=== PATIENT | male | born 1955 | race Hispanic/Latino ===

== ENCOUNTER 2017-02-03 02:43 | Emergency (ER) | payer MEDICARE, OTHER ==
[2017-02-03 03:00] VITALS: BMI 25.1
[2017-02-03 03:01] VITALS: TEMP 98.3; O2SAT 97
[2017-02-03] MEDS ORDERED: DiphenhydrAMINE 50 mg/ml Inj IVP ONE (03:10)
--- NOTE | 2017-02-03 03:17 | ED PDOC ---
Arrival/HPI - General Chief Complaint: Allergic Reaction Time Seen by Provider: 02/03/17 02:48 Historian: Patient - History of Present Illness Narrative History of Present Illness (Text): 02/03/17 03:13 Matheus Chahal is a 61 year old male who presents to the emergency department for evaluation of allergic reaction after drinking blueberry juice 3 days prior. Patient complains of itchiness and generalized rashes to upper body. Also reports of heaviness over the shoulders. States he experienced similar reaction to eating keon few years prior. Denies any lip/tongue swelling, throat fullness , or difficulty breathing. Denies fever, chills, headache, dizziness, chest pain , nausea, vomiting, diarrhea, or any other complaints at this time. PMD: Time/Duration: < week (3 days ) Symptom Onset: Gradual Symptom Course: Unchanged Severity Level: Mild Activities at Onset: Light Past Medical History - Provider Review Nursing Documentation Reviewed: Yes - Musculoskeletal/Rheumatological Hx Back Pain: Yes - Psychiatric Hx Depression: No Hx Emotional Abuse: No Hx Physical Abuse: No Hx Substance Use: No - Anesthesia Hx Anesthesia: No - Suicidal Assessment Feels Threatened In Home Enviroment: No Family/Social History - Physician Review Nursing Documentation Reviewed: Yes Family/Social History: No Known Family HX Smoking Status: Never Smoked Hx Alcohol Use: Yes (rarely) Hx Substance Use: No Hx Substance Use Treatment: No Allergies/Home Meds Allergies/Adverse Reactions: Allergies No Known Allergies Allergy (Verified 02/03/17 03:05) Review of Systems - Physician Review All systems were reviewed & negative as marked: Yes - Review of Systems Constitutional: Normal. absent: Fatigue, Fevers Respiratory: absent: SOB, Cough Cardiovascular: Normal. absent: Chest Pain Gastrointestinal: Normal. absent: Abdominal Pain, Diarrhea, Nausea, Vomiting Musculoskeletal: Other (heaviness over shoulders ) Skin: Rash, Other (Itchiness ) Neurological: Normal. absent: Headache, Dizziness Psychiatric: Normal Physical Exam Vital Signs Reviewed: Yes Vital Signs Temp Pulse Resp BP Pulse Ox 02/03/17 05:50 62 16 110/59 L 97 02/03/17 03:00 98.3 F 68 18 117/74 97 Temperature: Afebrile Blood Pressure: Normal Pulse: Regular Respiratory Rate: Normal Appearance: Positive for: Well-Appearing, Non-Toxic, Comfortable Pain Distress: None Mental Status: Positive for: Alert and Oriented X 3 - Systems Exam Head: Present: Atraumatic, Normocephalic Pupils: Present: PERRL Conjunctiva: Present: Normal Mouth: Present: Moist Mucous Membranes Pharnyx: Present: Normal. No: ERYTHEMA, EXUDATE, TONSILS ENLARGED Neck: Present: Normal Range of Motion. No: MIDLINE TENDERNESS, Paraspinal Tenderness Respiratory/Chest: Present: Clear to Auscultation, Good Air Exchange. No: Respiratory Distress, Accessory Muscle Use Cardiovascular: Present: Regular Rate and Rhythm, Normal S1, S2. No: Murmurs Abdomen: Present: Normal Bowel Sounds. No: Tenderness, Distention, Peritoneal Signs Upper Extremity: Present: Normal Inspection. No: Cyanosis, Edema Lower Extremity: Present: Normal Inspection. No: Edema Neurological: Present: GCS=15, CN II-XII Intact, Speech Normal, Motor Func Grossly Intact, Normal Sensory Function Skin: Present: Warm, Dry, Rashes (diffuse erythematous rash to chest and face ) Psychiatric: Present: Alert, Oriented x 3, Normal Insight, Normal Concentration Medical Decision Making ED Course and Treatment: 02/03/17 03:20 Impression: A 61 year old male who presents to the emergency department complaining of allergic reaction after drinking blueberry juice 3 days prior. Plan: -- EKG -- Benadryl -- Solumedrol -- Reassess and disposition Progress Notes: 02/03/17 03:21 EKG reviewed by me: NSR @ 67 bpm. RSR or QR pattern in V1 suggests right ventricular conduction delay. Re-evaluation Time: 06:22 Reassessment Condition: Re-examined, Improved - Medication Orders Current Medication Orders: Discontinued Medications Diphenhydramine HCl (Benadryl) 25 mg IVP ONCE ONE Stop: 02/03/17 03:11 Last Admin: 02/03/17 03:35 Dose: 25 mg Famotidine (Pepcid 20mg/50ml Premix) 20 mg in 50 mls @ 100 mls/hr IVPB STAT STA Stop: 02/03/17 05:11 Last Admin: 02/03/17 04:53 Dose: 100 mls/hr Methylprednisolone (Solu-Medrol) 125 mg IVP ONCE ONE Stop: 02/03/17 03:11 Last Admin: 02/03/17 03:37 Dose: 125 mg - Scribe Statement The provider has reviewed the documentation as recorded by the Estiven Sharif Provider Attestation: All medical record entries made by the Estiven were at my direction and personally dictated by me. I have reviewed the chart and agree that the record accurately reflects my personal performance of the history, physical exam, medical decision making, and the department course for this patient. I have also personally directed, reviewed, and agree with the discharge instructions and disposition. Disposition/Present on Arrival - Present on Arrival Any Indicators Present on Arrival: No History of DVT/PE: No History of Uncontrolled Diabetes: No Urinary Catheter: No History of Decub. Ulcer: No History Surgical Site Infection Following: None - Disposition Have Diagnosis and Disposition been Completed?: Yes Diagnosis: Allergic reaction Disposition: HOME/ ROUTINE Disposition Time: 06:23 Condition: GOOD Discharge Instructions (ExitCare): Allergies (ED), Food Allergy (ED) Prescriptions: Famotidine [Pepcid] 20 mg PO BID #10 tab predniSONE [predniSONE Tab] 20 mg PO TID #15 tab hydrOXYzine Pamoate [Vistaril] 25 mg PO QID #12 cap
[2017-02-03] MEDS ORDERED: Famotidine 20mg/50ml 20 MG/50 ML BAG IVPB STA (04:42)
[2017-02-03 05:55] VITALS: BP 110/59; PULSE 62; RESP 16
--- NOTE | 2017-02-03 22:22 | CARD ---
APPROVED REPORT EKG Measurement Heart [id number] <Conclusion> Normal sinus rhythm RSR' or QR pattern in V1 suggests right ventricular conduction delay Borderline ECG
== END 2017-02-03 06:30 | disposition home or self-care (01) ==
LOC: ED 02:43
DX: T78.1XXA Other adverse food reactions, not elsewhere classified, initial encounter (principal); R21 Rash and other nonspecific skin eruption; X58.XXXA Exposure to other specified factors, initial encounter
CPT/HCPCS: 93005; 96365; 96375; 99283; J1200; J2930